=== PATIENT | male | born 1980 | race Caucasian/White ===

== ENCOUNTER 2018-04-29 23:27 | Emergency (ER) | payer MEDICAID ==
[~2018-04-29] VITALS: Ht 175.3 cm; Wt 56.8 kg
[~2018-04-29 23:27] MED LIST: ELIQUIS2.5 MG PO; PERCOCET 10/3251 TA1 PO
[2018-04-29 23:38] VITALS: BP 116/67; Ht 175.3 cm; Wt 56.8 kg
== END 2018-04-30 | disposition left against medical advice (07) ==
LOC: D.ER 23:27
DX: K08.89 Other specified disorders of teeth and supporting structures (principal)

== ENCOUNTER 2020-05-24 13:13 | Emergency (ER) | payer MEDICAID ==
[~2020-05-24] VITALS: Ht 175.3 cm; Wt 58.2 kg
[2020-05-24 13:27] VITALS: Ht 175.3 cm; Wt 58.2 kg
[2020-05-24 16:04] VITALS: BP 108/60
== END 2020-05-24 16:04 | disposition home or self-care (01) ==
LOC: D.ER 13:13
DX: S90.32XA Contusion of left foot, initial encounter (principal); X58.XXXA Exposure to other specified factors, initial encounter; M79.672 Pain in left foot